=== PATIENT | male | born 1975 | race Caucasian/White ===

== ENCOUNTER 2022-11-10 16:40 | Emergency (ER) | payer OTHER ==
[~2022-11-10] VITALS: Ht 175.3 cm; Wt 88.0 kg
[2022-11-10 16:48] VITALS: TEMP 98.9; O2SAT 98
[2022-11-10 17:25] VITALS: BP 149/97; PULSE 75; RESP 16
[2022-11-10] MEDS ORDERED: KETOROLAC 60MG/2ML VIAL IM STA (17:25)
[2022-11-10] MEDS ORDERED: HYDROCODONE/ACETAMINOPHEN 5/325MG TABLET PO STA (17:25)
[2022-11-10] MEDS ORDERED: BACITRACIN ZINC OINT UDPKT TOP ONE (17:30)
[2022-11-10] MEDS ORDERED: LIDOCAINE HCL/PF 1% 10 MG/ML 5ML VIAL INFIL ONE ×2 (17:45→18:30)
[2022-11-10] MEDS ORDERED: CEPHALEXIN 250MG CAPSULE PO ONE (18:30)
[2022-11-10] MEDS ORDERED: CEPH500C2 PO ×2 (19:18)
[2022-11-10] MEDS ORDERED: HYDR-4001 PO ×2 (19:18)
[2022-11-10] MEDS ORDERED: IBUP-2029 PO ×2 (19:18)
[2022-11-10] MEDS ORDERED: T3 PO (19:54)
[2022-11-10] MEDS ORDERED: IBUP-2029 MT (19:54)
[2022-11-10] MEDS ORDERED: CEPH500C2 MT (19:54)
== END 2022-11-10 20:26 | disposition home or self-care (01) ==
LOC: ER 16:40
DX: S61.215A Laceration without foreign body of left ring finger without damage to nail, initial encounter (principal); W23.0XXA Caught, crushed, jammed, or pinched between moving objects, initial encounter; Y93.89 Activity, other specified; Y92.89 Other specified places as the place of occurrence of the external cause; Y99.8 Other external cause status
CPT/HCPCS: 73140; 12002; 96372; 99283; J1885; J3490; Z7610